=== PATIENT | female | born 1985 | race African-American/Black ===

== ENCOUNTER 2021-10-22 15:26 | Emergency (ER) | payer SELFPAY ==
[~2021-10-22] VITALS: Ht 167.6 cm; Wt 125.0 kg
[2021-10-22 19:25] LABS: CLARITY URINE CLOUDY (CLEAR); COLOR URINE YELLOW (YELLOW); KETONES URINE TRACE (NEGATIVE); LEUKOCYTE ESTERASE URINE TRACE (NEGATIVE); NITRITE URINE NEGATIVE (NEGATIVE); OCCULT BLOOD URINE TRACE (NEGATIVE); PH URINE 5.5 (4.5-8.0); PROTEIN URINE NEGATIVE (NEGATIVE); SPECIFIC GRAVITY URINE 1.029 (1.005-1.030)
[2021-10-22 19:40] VITALS: BP 131/69
[2021-10-22] MEDS ORDERED: METR-167 MT (19:46)
[2021-10-25 04:12] LABS: NEISSERIA GONORRHOEAE NAA Negative (Negative)
== END 2021-10-22 19:56 | disposition home or self-care (01) ==
LOC: ER 15:26
DX: N76.0 Acute vaginitis (principal); Z11.3 Encounter for screening for infections with a predominantly sexual mode of transmission
CPT/HCPCS: 81003; 81025; 87210; 87491; 87591; 99283